=== PATIENT | male | born 1965 | race Two or more races ===

== ENCOUNTER → 2017-10-07 | Outpatient (POV) | LOC: OUTPT 00:01 | PROVIDERS: ATTEND Otolaryngology | DX: S09.91XA Unspecified injury of ear, initial encounter (principal) | CPT/HCPCS: 92553; 92567 ==

== ENCOUNTER → 2017-11-04 | Outpatient (POV) | LOC: OUTPT 00:01 | PROVIDERS: ATTEND Otolaryngology | DX: T20.41 Corrosion of unspecified degree of ear [any part, except ear drum] (principal); H91.90 Unspecified hearing loss, unspecified ear | CPT/HCPCS: 92553; 92567 ==

== ENCOUNTER → 2017-12-08 | Outpatient (POV) | LOC: OUTPT 00:01 | PROVIDERS: ATTEND Otolaryngology | DX: T20.019 Burn of unspecified degree of unspecified ear [any part, except ear drum] (principal); H91.90 Unspecified hearing loss, unspecified ear; X08.8XXA Exposure to other specified smoke, fire and flames, initial encounter | CPT/HCPCS: 92552; 92567 ==